=== PATIENT | male | born 1965 | race Caucasian/White ===

== ENCOUNTER 2017-01-17 09:13 | Inpatient (IN) | payer MEDICAID ==
[~2017-01-17] VITALS: Ht 175.3 cm; Wt 74.1 kg
[~2017-01-17 09:13] MED LIST: OMEP20CA10 PO; ORPH-43 PO; [UNRECOGNIZED DRUG - CODE] PO; [UNRECOGNIZED DRUG - REMARK]
[2017-01-17] MEDS ORDERED: MethylPREDNISolone SOD SUCC 125 MG/2 ML VIAL ONE (09:16)
[2017-01-17] MEDS ORDERED: 0.9% SODIUM CHLORIDE 5 ML NEB SOLUTION NEB ONE (09:23)
[2017-01-17] MEDS ORDERED: ALBUTEROL SULFATE 5 MG/ML 20 ML NEB SOLN [BULK] NEB ONE (09:30)
[2017-01-17] MEDS ORDERED: MethylPREDNISolone SOD SUCC 125 MG/2 ML VIAL IVP ONE (09:30)
[2017-01-17] MEDS ORDERED: IPRATROPIUM BROMIDE 0.5 MG/2.5 ML NEB SOLUTION NEB ONE (09:30)
[2017-01-17 09:39] LABS: BASOPHILS % (AUTO) 0.8 % (0.0-2.0); EOSINOPHILS % (AUTO) 5.1 % (1.0-6.0); HEMATOCRIT 34.1 % (41-53); HEMOGLOBIN 11.1 g/dL (13.5-17.5); LYMPHOCYTES # (AUTO) 1.1 K/uL (1.0-4.8); LYMPHOCYTES % (AUTO) 11.6 % (22.0-44.0); MEAN CORPUSCULAR HEMOGLOBIN 27.1 pg (26.0-34.0); MEAN CORPUSCULAR HGB CONC 32.4 G/dL (31.0-37.0); MEAN CORPUSCULAR VOLUME 84 fL (80-100); MONOCYTES # (AUTO) 0.9 K/uL (0.1-1.0); MONOCYTES % (AUTO) 9.4 % (2.0-9.0); NEUTROPHILS # (AUTO) 6.8 K/uL (1.8-7.7); NEUTROPHILS % (AUTO) 73.1 % (40.0-70.0); PLATELET COUNT (AUTO) 215 K/uL (150-450); RED BLOOD CELL COUNT(AUTO) 4.09 MIL/uL (4.50-5.90); RED CELL DISTRIBUTION WIDTH 17.3 % (11.5-14.5); WHITE BLOOD COUNT (AUTO) 9.3 K/uL (4.5-11.0)
[2017-01-17 09:45] LABS: ANION GAP 13 mmol/L (8-16); CALCIUM, TOTAL 8.8 mg/dL (8.8-10.5); CARBON DIOXIDE 25 mmol/L (22-29); CHLORIDE 102 mmol/L (98-107); CREATININE 0.82 mg/dL (0.60-1.30); GLOMERULAR FILTR. RATE CALC > 60 mL/min (>60); SODIUM SERUM 140 mmol/L (136-145); UREA NITROGEN, BLOOD 11 mg/dL (7-18)
[2017-01-17] MEDS ORDERED: ACETAMINOPHEN 500 MG TABLET PO ONE (10:00)
[2017-01-17 10:02] LABS: B-TYPE NATRIURETIC PEPTIDE 30 pg/mL (0-100)
[2017-01-17 10:10] LABS: ALANINE AMINOTRANSFERASE 31 U/L (12-78); ALBUMIN 3.6 g/dL (3.4-5.0); ASPARTATE AMINOTRANSFERASE 28 U/L (15-37); BILIRUBIN,TOTAL 0.4 mg/dL (0.1-1.0); CREATINE KINASE MB 0.8 ng/mL (0-5); CREATINE KINASE, TOTAL 115 U/L (39-308); TOTAL PROTEIN, SERUM 8.7 g/dL (6.4-8.2)
[2017-01-17 10:17] LABS: LACTIC ACID 1.3 mmol/L (0.4-2.0)
[2017-01-17 10:25] LABS: ABG OXYHEMOGLOBIN 97.7 % (94.0-100.0)
[2017-01-17 10:28] LABS: ABG A-A DIFF O2 375.9 mmHg (10-20.0); ABG BASE EXCESS -1.5 mmol/L (-2.0-3.0); ABG HCO3 23.6 mmol/L (22.0-26.0); ABG PCO2 38 mmHg (35-45); ABG PH 7.403 (7.35-7.450)
[2017-01-17 10:29] LABS: ALLEN TEST, BLOOD GAS Positive
[2017-01-17 10:29] LABS: APPEARANCE,URINE CLEAR (CLEAR); GLUCOSE, URINE (UA) NEGATIVE (NEGATIVE); KETONES,URINE 40 mg/dL (NEGATIVE); LEUKOCYTE ESTERASE ,URINE NEGATIVE (NEGATIVE); OCCULT BLOOD,URINE NEGATIVE (NEGATIVE); PH,URINE 5.5 (5.0-8.0); PROTEIN,URINE TRACE (NEGATIVE)
[2017-01-17 10:30] LABS: IPAP, BG 16 cm H2O
[2017-01-17 10:30] LABS: ADD UA MICROSCOPIC NO
[2017-01-17] MEDS ORDERED: SODIUM CHLORIDE 0.9% 500 ML IV ONE (10:30)
[2017-01-17] MEDS ORDERED: VANCOMYCIN HCL 1 GM/D5% WATER 200 ML IV ONE (10:30)
[2017-01-17] MEDS ORDERED: PIPERACILLIN/TAZO 3.375 GM/D5W 50 ML IV ONE (10:30)
[2017-01-17] MEDS ORDERED: KETOROLAC TROMETHAMINE 30 MG/ML VIAL IVP ONE (12:00)
[2017-01-17 13:31] LABS: INFLUENZA TYPE B NEGATIVE FOR TYPE B (NEGATIVE)
[2017-01-17] MEDS ORDERED: HYDROCODONE/ACETAMINOPHEN 5-325 MG TABLET PO PRN (13:45)
[2017-01-17] MEDS ORDERED: MAGNESIUM HYDROXIDE SUSPENSION 30 ML UDCUP PO PRN (13:45)
[2017-01-17] MEDS ORDERED: BISACODYL 10 MG RECTAL RECTAL SUPPOSITORY PR PRN (13:45)
[2017-01-17] MEDS ORDERED: IPRATROPIUM BROMIDE 0.5 MG/2.5 ML NEB SOLUTION NEB PRN (13:45)
[2017-01-17] MEDS ORDERED: ONDANSETRON HCL 4 MG/2 ML VIAL IVP PRN (13:45)
[2017-01-17] MEDS ORDERED: ACETAMINOPHEN 325 MG TABLET PO PRN (13:45)
[2017-01-17] MEDS ORDERED: ALBUTEROL SULFATE 2.5 MG/0.5 ML NEB SOLUTION NEB PRN (14:00)
[2017-01-17 14:08] VITALS: BP 109/69
[2017-01-17] MEDS: ALBUTEROL SULFATE 2.5 MG/0.5 ML NEB SOLUTION NEB SCH ×2 (14:47→20:04)
[2017-01-17] MEDS: IPRATROPIUM BROMIDE 0.5 MG/2.5 ML NEB SOLUTION NEB SCH ×2 (14:47→20:04)
[2017-01-17] MEDS ORDERED: SODIUM CHLORIDE 0.9% 250 ML IV ONE (14:51)
[2017-01-17] MEDS: CefTRIAXone 1 GM/DEXTROSE 50 ML IV SCH (14:55)
[2017-01-17 15:30] VITALS: BP 134/80
[2017-01-17] MEDS: IPRATROPIUM BROMIDE 0.5 MG/2.5 ML NEB SOLUTION NEB PRN (17:09)
[2017-01-17] MEDS: ALBUTEROL SULFATE 2.5 MG/0.5 ML NEB SOLUTION NEB PRN (17:09)
[2017-01-17] MEDS: AZITHROMYCIN 500 MG/NS 250 ML IV SCH (17:13)
[2017-01-17] MEDS: BENZONATATE 100 MG CAPSULE PO SCH ×2 (17:13→22:44)
[2017-01-17] MEDS: HEPARIN SODIUM,PORCINE 5,000 UNITS/ML VIAL SQ SCH (17:13)
[2017-01-17] MEDS ORDERED: *NON-FORMULARY MED [ENTER DRUG, DOSE, FREQ IN COMMENTS] CLINICAL ONE ×2 (18:30)
[2017-01-17 20:22] VITALS: BP 119/82
[2017-01-17] MEDS: MethylPREDNISolone SOD SUCC 125 MG/2 ML VIAL IVP SCH (20:44)
[2017-01-17] MEDS: PIRFENIDONE 267 MG PO SCH (20:44)
[2017-01-17] MEDS: DOCUSATE SODIUM 100 MG CAPSULE PO SCH (22:44)
[2017-01-17] MEDS: GuaiFENesin SR 600 MG ER TABLET PO SCH (22:44)
[2017-01-17 23:57] VITALS: BP 98/64
[2017-01-18] VITALS (7 sets, daily range): BP systolic 121–137; BP diastolic 72–92
[2017-01-18] MEDS: ALBUTEROL SULFATE 2.5 MG/0.5 ML NEB SOLUTION NEB SCH ×4 (01:53→20:09)
[2017-01-18] MEDS: IPRATROPIUM BROMIDE 0.5 MG/2.5 ML NEB SOLUTION NEB SCH ×4 (01:53→20:09)
[2017-01-18] MEDS: HEPARIN SODIUM,PORCINE 5,000 UNITS/ML VIAL SQ SCH ×4 (01:56→23:44)
[2017-01-18] MEDS: MethylPREDNISolone SOD SUCC 125 MG/2 ML VIAL IVP SCH ×5 (01:56→23:44)
[2017-01-18 06:39] LABS: EOSINOPHILS % (AUTO) 0 % (1.0-6.0); HEMATOCRIT 30.3 % (41-53); LYMPHOCYTES # (AUTO) 0.4 K/uL (1.0-4.8); LYMPHOCYTES % (AUTO) 3.5 % (22.0-44.0); MEAN CORPUSCULAR HEMOGLOBIN 27.8 pg (26.0-34.0); MEAN CORPUSCULAR HGB CONC 32.9 G/dL (31.0-37.0); MEAN CORPUSCULAR VOLUME 84 fL (80-100); MONOCYTES # (AUTO) 0.2 K/uL (0.1-1.0); MONOCYTES % (AUTO) 2.4 % (2.0-9.0); NEUTROPHILS # (AUTO) 9.7 K/uL (1.8-7.7); PLATELET COUNT (AUTO) 195 K/uL (150-450); RED BLOOD CELL COUNT(AUTO) 3.58 MIL/uL (4.50-5.90); RED CELL DISTRIBUTION WIDTH 16.8 % (11.5-14.5); WHITE BLOOD COUNT (AUTO) 10.3 K/uL (4.5-11.0)
[2017-01-18 07:06] LABS: ANION GAP 10 mmol/L (8-16); CALCIUM, TOTAL 9.1 mg/dL (8.8-10.5); CARBON DIOXIDE 26 mmol/L (22-29); CHLORIDE 101 mmol/L (98-107); CREATININE 0.75 mg/dL (0.60-1.30); GLOMERULAR FILTR. RATE CALC > 60 mL/min (>60); POTASSIUM 4.2 mmol/L (3.5-5.1); SODIUM SERUM 137 mmol/L (136-145); UREA NITROGEN, BLOOD 22 mg/dL (7-18)
[2017-01-18 07:10] LABS: NEUTROPHILS % (AUTO) 94.1 % (40.0-70.0)
[2017-01-18] MEDS: PIRFENIDONE 267 MG PO SCH ×3 (08:12→19:11)
[2017-01-18] MEDS: DOCUSATE SODIUM 100 MG CAPSULE PO SCH ×2 (08:15→19:57)
[2017-01-18] MEDS: PANTOPRAZOLE SODIUM 40 MG DR TABLET PO SCH (08:15)
[2017-01-18] MEDS: GuaiFENesin SR 600 MG ER TABLET PO SCH ×2 (08:15→19:57)
[2017-01-18] MEDS: BENZONATATE 100 MG CAPSULE PO SCH ×3 (08:15→19:58)
[2017-01-18] MEDS: CefTRIAXone 1 GM/DEXTROSE 50 ML IV SCH (15:14)
[2017-01-18] MEDS: AZITHROMYCIN 500 MG/NS 250 ML IV SCH (16:55)
[2017-01-18] MEDS: ZOLPIDEM TARTRATE 5 MG TABLET PO PRN (19:58)
[2017-01-18] MEDS: MORPHINE SULFATE 2 MG/ML SYRINGE IVP PRN (22:20)
[2017-01-19] MEDS: IPRATROPIUM BROMIDE 0.5 MG/2.5 ML NEB SOLUTION NEB SCH ×4 (01:37→20:06)
[2017-01-19] MEDS: ALBUTEROL SULFATE 2.5 MG/0.5 ML NEB SOLUTION NEB SCH ×4 (01:37→20:06)
[2017-01-19 05:12] VITALS: BP 109/74
[2017-01-19] MEDS: MethylPREDNISolone SOD SUCC 125 MG/2 ML VIAL IVP SCH ×3 (05:21→17:55)
[2017-01-19 06:50] LABS: EOSINOPHILS % (AUTO) 0 % (1.0-6.0); HEMATOCRIT 32.5 % (41-53); HEMOGLOBIN 10.5 g/dL (13.5-17.5); LYMPHOCYTES # (AUTO) 0.8 K/uL (1.0-4.8); LYMPHOCYTES % (AUTO) 4.9 % (22.0-44.0); MEAN CORPUSCULAR HEMOGLOBIN 27.8 pg (26.0-34.0); MEAN CORPUSCULAR HGB CONC 32.5 G/dL (31.0-37.0); MEAN CORPUSCULAR VOLUME 86 fL (80-100); MONOCYTES # (AUTO) 0.9 K/uL (0.1-1.0); MONOCYTES % (AUTO) 5.2 % (2.0-9.0); NEUTROPHILS # (AUTO) 14.8 K/uL (1.8-7.7); PLATELET COUNT (AUTO) 238 K/uL (150-450); RED BLOOD CELL COUNT(AUTO) 3.79 MIL/uL (4.50-5.90); RED CELL DISTRIBUTION WIDTH 17.2 % (11.5-14.5); WHITE BLOOD COUNT (AUTO) 16.5 K/uL (4.5-11.0)
[2017-01-19 06:55] LABS: NEUTROPHILS % (AUTO) 89.9 % (40.0-70.0)
[2017-01-19] MEDS: PIRFENIDONE 267 MG PO SCH ×3 (06:58→17:55)
[2017-01-19 07:11] LABS: ANION GAP 7 mmol/L (8-16); CALCIUM, TOTAL 8.5 mg/dL (8.8-10.5); CARBON DIOXIDE 28 mmol/L (22-29); CHLORIDE 101 mmol/L (98-107); CREATININE 0.86 mg/dL (0.60-1.30); GLOMERULAR FILTR. RATE CALC > 60 mL/min (>60); POTASSIUM 4.3 mmol/L (3.5-5.1); SODIUM SERUM 136 mmol/L (136-145); UREA NITROGEN, BLOOD 20 mg/dL (7-18)
[2017-01-19 07:24] VITALS: BP 128/96
[2017-01-19 07:39] LABS: RBC MORPHOLOGY COMMENT ABNORMAL RBC MORPH
[2017-01-19] MEDS: BENZONATATE 100 MG CAPSULE PO SCH ×3 (09:00→20:05)
[2017-01-19] MEDS: HEPARIN SODIUM,PORCINE 5,000 UNITS/ML VIAL SQ SCH ×2 (09:00→17:07)
[2017-01-19] MEDS: PANTOPRAZOLE SODIUM 40 MG DR TABLET PO SCH (09:00)
[2017-01-19] MEDS: GuaiFENesin SR 600 MG ER TABLET PO SCH ×2 (09:00→20:05)
[2017-01-19] MEDS: DOCUSATE SODIUM 100 MG CAPSULE PO SCH ×2 (09:01→20:05)
[2017-01-19] MEDS: IPRATROPIUM BROMIDE 0.5 MG/2.5 ML NEB SOLUTION NEB PRN (09:49)
[2017-01-19] MEDS: ALBUTEROL SULFATE 2.5 MG/0.5 ML NEB SOLUTION NEB PRN (09:49)
[2017-01-19 11:16] VITALS: BP 137/64
[2017-01-19] MEDS ORDERED: HALOPERIDOL 5 MG TABLET PO PRN (15:00)
[2017-01-19 15:21] VITALS: BP 128/76
[2017-01-19] MEDS: CefTRIAXone 1 GM/DEXTROSE 50 ML IV SCH (17:07)
[2017-01-19] MEDS: AZITHROMYCIN 500 MG/NS 250 ML IV SCH (17:55)
[2017-01-19 19:50] VITALS: BP 125/81
[2017-01-19] MEDS: HALOPERIDOL LACTATE 5 MG/ML VIAL IVP PRN (22:26)
[2017-01-19] MEDS: ZOLPIDEM TARTRATE 5 MG TABLET PO PRN (22:26)
[2017-01-19 23:38] VITALS: BP 140/68
[2017-01-20] VITALS (7 sets, daily range): BP systolic 106–149; BP diastolic 68–93
[2017-01-20] MEDS: MethylPREDNISolone SOD SUCC 125 MG/2 ML VIAL IVP SCH ×5 (00:13→23:43)
[2017-01-20] MEDS: HEPARIN SODIUM,PORCINE 5,000 UNITS/ML VIAL SQ SCH ×4 (00:13→23:43)
[2017-01-20] MEDS: IPRATROPIUM BROMIDE 0.5 MG/2.5 ML NEB SOLUTION NEB SCH ×4 (02:23→19:43)
[2017-01-20] MEDS: ALBUTEROL SULFATE 2.5 MG/0.5 ML NEB SOLUTION NEB SCH ×4 (02:23→19:42)
[2017-01-20 06:38] LABS: BASOPHILS # (AUTO) 0.02 K/uL (0.00-0.20); BASOPHILS % (AUTO) 0.1 % (0.0-2.0); EOSINOPHILS % (AUTO) 0.03 % (1.0-6.0); HEMATOCRIT 31.8 % (41-53); HEMOGLOBIN 10.2 g/dL (13.5-17.5); LYMPHOCYTES # (AUTO) 0.3 K/uL (1.0-4.8); LYMPHOCYTES % (AUTO) 2.9 % (22.0-44.0); MEAN CORPUSCULAR HEMOGLOBIN 27.3 pg (26.0-34.0); MEAN CORPUSCULAR HGB CONC 32.2 G/dL (31.0-37.0); MEAN CORPUSCULAR VOLUME 85 fL (80-100); MONOCYTES # (AUTO) 0.7 K/uL (0.1-1.0); MONOCYTES % (AUTO) 6.1 % (2.0-9.0); NEUTROPHILS # (AUTO) 10.7 K/uL (1.8-7.7); PLATELET COUNT (AUTO) 182 K/uL (150-450); RED BLOOD CELL COUNT(AUTO) 3.75 MIL/uL (4.50-5.90); RED CELL DISTRIBUTION WIDTH 17.6 % (11.5-14.5); WHITE BLOOD COUNT (AUTO) 11.8 K/uL (4.5-11.0)
[2017-01-20 06:52] LABS: ANION GAP 7 mmol/L (8-16); CALCIUM, TOTAL 8.7 mg/dL (8.8-10.5); CARBON DIOXIDE 30 mmol/L (22-29); CHLORIDE 102 mmol/L (98-107); CREATININE 0.76 mg/dL (0.60-1.30); GLOMERULAR FILTR. RATE CALC > 60 mL/min (>60); POTASSIUM 4.2 mmol/L (3.5-5.1); SODIUM SERUM 139 mmol/L (136-145); UREA NITROGEN, BLOOD 20 mg/dL (7-18)
[2017-01-20 07:29] LABS: NEUTROPHILS % (AUTO) 90.8 % (40.0-70.0)
[2017-01-20] MEDS: BENZONATATE 100 MG CAPSULE PO SCH ×3 (08:13→20:09)
[2017-01-20] MEDS: DOCUSATE SODIUM 100 MG CAPSULE PO SCH ×2 (08:13→20:08)
[2017-01-20] MEDS: PANTOPRAZOLE SODIUM 40 MG DR TABLET PO SCH (08:13)
[2017-01-20] MEDS: GuaiFENesin SR 600 MG ER TABLET PO SCH ×2 (08:13→20:08)
[2017-01-20] MEDS: PIRFENIDONE 267 MG PO SCH ×4 (08:14→18:00)
[2017-01-20] MEDS: HALOPERIDOL LACTATE 5 MG/ML VIAL IVP PRN ×3 (08:30→19:38)
[2017-01-20 09:04] LABS: RBC MORPHOLOGY COMMENT ABNORMAL RBC MORPH
[2017-01-20] MEDS: IPRATROPIUM BROMIDE 0.5 MG/2.5 ML NEB SOLUTION NEB PRN (11:46)
[2017-01-20] MEDS: ALBUTEROL SULFATE 2.5 MG/0.5 ML NEB SOLUTION NEB PRN (11:46)
[2017-01-20] MEDS: LORazepam 2 MG/ML VIAL IVP PRN ×3 (11:57→21:24)
[2017-01-20 12:05] LABS: ABG BASE EXCESS 0.2 mmol/L (-2.0-3.0); ABG HCO3 24.6 mmol/L (22.0-26.0); ABG OXYHEMOGLOBIN 98.3 % (94.0-100.0); ABG PCO2 43 mmHg (35-45); ABG PH 7.384 (7.35-7.450); TEMPERATURE, FAHRENHEIT, BG 98.3 FAHREN (96.0-98.6)
[2017-01-20 12:06] LABS: ALLEN TEST, BLOOD GAS Positive; IPAP, BG 12 cm H2O
[2017-01-20] MEDS: MORPHINE SULFATE 2 MG/ML SYRINGE IVP PRN ×2 (13:31→19:38)
[2017-01-20] MEDS: CefTRIAXone 1 GM/DEXTROSE 50 ML IV SCH (14:32)
[2017-01-20] MEDS ORDERED: SODIUM CHLORIDE 0.9% 250 ML IV ONE (14:36)
[2017-01-20] MEDS: AZITHROMYCIN 500 MG/NS 250 ML IV SCH (16:01)
[2017-01-20] MEDS: ZOLPIDEM TARTRATE 5 MG TABLET PO PRN (19:38)
[2017-01-21] VITALS (10 sets, daily range): BP systolic 96–149; BP diastolic 65–87
[2017-01-21] MEDS: ALBUTEROL SULFATE 2.5 MG/0.5 ML NEB SOLUTION NEB SCH ×4 (01:29→19:25)
[2017-01-21] MEDS: IPRATROPIUM BROMIDE 0.5 MG/2.5 ML NEB SOLUTION NEB SCH ×4 (01:29→19:25)
[2017-01-21] MEDS: HALOPERIDOL LACTATE 5 MG/ML VIAL IVP PRN ×3 (01:53→19:43)
[2017-01-21] MEDS: MORPHINE SULFATE 2 MG/ML SYRINGE IVP PRN ×4 (01:53→21:04)
[2017-01-21] MEDS: LORazepam 2 MG/ML VIAL IVP PRN ×4 (01:53→21:04)
[2017-01-21 05:10] LABS: ANION GAP 4 mmol/L (8-16); CALCIUM, TOTAL 8.5 mg/dL (8.8-10.5); CARBON DIOXIDE 32 mmol/L (22-29); CHLORIDE 102 mmol/L (98-107); CREATININE 0.72 mg/dL (0.60-1.30); GLOMERULAR FILTR. RATE CALC > 60 mL/min (>60); POTASSIUM 4.5 mmol/L (3.5-5.1); SODIUM SERUM 138 mmol/L (136-145); UREA NITROGEN, BLOOD 23 mg/dL (7-18)
[2017-01-21 06:08] LABS: EOSINOPHILS % (AUTO) 0 % (1.0-6.0); HEMOGLOBIN 9.5 g/dL (13.5-17.5); LYMPHOCYTES # (AUTO) 0.2 K/uL (1.0-4.8); MEAN CORPUSCULAR HEMOGLOBIN 28.3 pg (26.0-34.0); MEAN CORPUSCULAR HGB CONC 32.7 G/dL (31.0-37.0); MEAN CORPUSCULAR VOLUME 86 fL (80-100); MONOCYTES # (AUTO) 0.4 K/uL (0.1-1.0); MONOCYTES % (AUTO) 4.7 % (2.0-9.0); NEUTROPHILS # (AUTO) 7.2 K/uL (1.8-7.7); PLATELET COUNT (AUTO) 185 K/uL (150-450); RED BLOOD CELL COUNT(AUTO) 3.35 MIL/uL (4.50-5.90); RED CELL DISTRIBUTION WIDTH 17.3 % (11.5-14.5); WHITE BLOOD COUNT (AUTO) 7.8 K/uL (4.5-11.0)
[2017-01-21 06:16] LABS: NEUTROPHILS % (AUTO) 92.3 % (40.0-70.0)
[2017-01-21] MEDS: MethylPREDNISolone SOD SUCC 125 MG/2 ML VIAL IVP SCH ×4 (06:22→23:21)
[2017-01-21] MEDS: PIRFENIDONE 267 MG PO SCH ×4 (07:00→15:45)
[2017-01-21 07:24] LABS: RBC MORPHOLOGY COMMENT ABNORMAL RBC MORPH
[2017-01-21] MEDS: BENZONATATE 100 MG CAPSULE PO SCH ×4 (09:00→21:00)
[2017-01-21] MEDS: GuaiFENesin SR 600 MG ER TABLET PO SCH ×3 (09:00→21:00)
[2017-01-21] MEDS: DOCUSATE SODIUM 100 MG CAPSULE PO SCH ×3 (09:00→21:00)
[2017-01-21] MEDS: HEPARIN SODIUM,PORCINE 5,000 UNITS/ML VIAL SQ SCH ×3 (09:46→23:21)
[2017-01-21] MEDS: PANTOPRAZOLE SODIUM 40 MG DR TABLET PO SCH ×2 (09:48→10:27)
[2017-01-21] MEDS ORDERED: DEXTROSE 5%-0.45% SODIUM CHL 1,000 ML IV SCH (13:45)
[2017-01-21] MEDS: CefTRIAXone 1 GM/DEXTROSE 50 ML IV SCH (14:37)
[2017-01-21] MEDS: AZITHROMYCIN 500 MG/NS 250 ML IV SCH (16:29)
[2017-01-22] VITALS (14 sets, daily range): BP systolic 106–143; BP diastolic 67–90
[2017-01-22] MEDS: MORPHINE SULFATE 2 MG/ML SYRINGE IVP PRN ×4 (01:16→17:00)
[2017-01-22] MEDS: LORazepam 2 MG/ML VIAL IVP PRN ×5 (01:17→20:46)
[2017-01-22] MEDS: IPRATROPIUM BROMIDE 0.5 MG/2.5 ML NEB SOLUTION NEB SCH ×4 (02:48→21:46)
[2017-01-22] MEDS: ALBUTEROL SULFATE 2.5 MG/0.5 ML NEB SOLUTION NEB SCH ×4 (02:48→21:46)
[2017-01-22] MEDS: HALOPERIDOL LACTATE 5 MG/ML VIAL IVP PRN ×4 (04:27→23:46)
[2017-01-22] MEDS: PIRFENIDONE 267 MG PO SCH ×3 (06:10→17:46)
[2017-01-22] MEDS: MethylPREDNISolone SOD SUCC 125 MG/2 ML VIAL IVP SCH ×4 (06:11→23:46)
[2017-01-22] MEDS: HEPARIN SODIUM,PORCINE 5,000 UNITS/ML VIAL SQ SCH ×3 (08:19→23:46)
[2017-01-22] MEDS: DOCUSATE SODIUM 100 MG CAPSULE PO SCH ×2 (08:19→20:46)
[2017-01-22] MEDS: BENZONATATE 100 MG CAPSULE PO SCH ×3 (08:20→20:46)
[2017-01-22] MEDS: GuaiFENesin SR 600 MG ER TABLET PO SCH ×2 (08:20→20:46)
[2017-01-22] MEDS ORDERED: *CLINICAL-PERIPHERAL PARENTERAL NUTRITION DOSING CLINICAL ONE (11:45)
[2017-01-22] MEDS ORDERED: SODIUM CHLORIDE 0.9% 250 ML IV ONE (13:04)
[2017-01-22] MEDS: PPN SOLUTION 1 EA, MVI, ADULT NO.1 WITH VIT K 10 ML, FOLIC ACID 2 MG in AA 4.25%/CALCIU... IV SCH ×3 (13:09)
[2017-01-22 15:09] LABS: ABG A-A DIFF O2 560.2 mmHg (10-20.0); ABG OXYHEMOGLOBIN 96.4 % (94.0-100.0); ABG PCO2 54 mmHg (35-45); ABG PH 7.368 (7.35-7.450); ALLEN TEST, BLOOD GAS Positive; TEMPERATURE, FAHRENHEIT, BG 98.2 FAHREN (96.0-98.6)
[2017-01-22] MEDS: CefTRIAXone 1 GM/DEXTROSE 50 ML IV SCH (15:09)
[2017-01-22 15:10] LABS: IPAP, BG 16 cm H2O
[2017-01-22] MEDS: AZITHROMYCIN 500 MG/NS 250 ML IV SCH (16:15)
[2017-01-23] VITALS (11 sets, daily range): BP systolic 104–159; BP diastolic 71–98
[2017-01-23] MEDS: IPRATROPIUM BROMIDE 0.5 MG/2.5 ML NEB SOLUTION NEB SCH ×4 (02:28→19:08)
[2017-01-23] MEDS: ALBUTEROL SULFATE 2.5 MG/0.5 ML NEB SOLUTION NEB SCH ×4 (02:28→19:09)
[2017-01-23] MEDS: LORazepam 2 MG/ML VIAL IVP PRN ×4 (02:33→19:19)
[2017-01-23 05:11] LABS: ANION GAP 3 mmol/L (8-16); CALCIUM, TOTAL 8.5 mg/dL (8.8-10.5); CARBON DIOXIDE 33 mmol/L (22-29); CHLORIDE 102 mmol/L (98-107); CREATININE 0.69 mg/dL (0.60-1.30); GLOMERULAR FILTR. RATE CALC > 60 mL/min (>60); PHOSPHORUS 3.4 mg/dL (2.5-4.9); POTASSIUM 4.4 mmol/L (3.5-5.1); SODIUM SERUM 138 mmol/L (136-145); UREA NITROGEN, BLOOD 30 mg/dL (7-18)
[2017-01-23] MEDS: MethylPREDNISolone SOD SUCC 125 MG/2 ML VIAL IVP SCH ×3 (06:42→17:22)
[2017-01-23] MEDS: PIRFENIDONE 267 MG PO SCH ×3 (06:42→17:21)
[2017-01-23] MEDS: HALOPERIDOL LACTATE 5 MG/ML VIAL IVP PRN ×3 (06:52→20:21)
[2017-01-23 07:41] LABS: EOSINOPHILS % (AUTO) 0 % (1.0-6.0); HEMATOCRIT 30.8 % (41-53); HEMOGLOBIN 9.9 g/dL (13.5-17.5); LYMPHOCYTES # (AUTO) 0.1 K/uL (1.0-4.8); LYMPHOCYTES % (AUTO) 1.5 % (22.0-44.0); MEAN CORPUSCULAR HGB CONC 32.2 G/dL (31.0-37.0); MEAN CORPUSCULAR VOLUME 84 fL (80-100); MONOCYTES # (AUTO) 0.3 K/uL (0.1-1.0); MONOCYTES % (AUTO) 3.5 % (2.0-9.0); NEUTROPHILS # (AUTO) 7.5 K/uL (1.8-7.7); PLATELET COUNT (AUTO) 172 K/uL (150-450); RED BLOOD CELL COUNT(AUTO) 3.68 MIL/uL (4.50-5.90); RED CELL DISTRIBUTION WIDTH 16.7 % (11.5-14.5); WHITE BLOOD COUNT (AUTO) 7.9 K/uL (4.5-11.0)
[2017-01-23] MEDS: HEPARIN SODIUM,PORCINE 5,000 UNITS/ML VIAL SQ SCH ×2 (08:07→16:02)
[2017-01-23] MEDS: DOCUSATE SODIUM 100 MG CAPSULE PO SCH ×2 (09:00→20:21)
[2017-01-23] MEDS: PANTOPRAZOLE SODIUM 40 MG/VIAL IVP SCH (09:21)
[2017-01-23] MEDS: BENZONATATE 100 MG CAPSULE PO SCH ×4 (09:21→20:21)
[2017-01-23] MEDS: GuaiFENesin SR 600 MG ER TABLET PO SCH ×2 (09:21→20:21)
[2017-01-23] MEDS: MORPHINE SULFATE 2 MG/ML SYRINGE IVP PRN ×3 (10:51→21:53)
[2017-01-23] MEDS: ALBUTEROL SULFATE 2.5 MG/0.5 ML NEB SOLUTION NEB PRN (11:11)
[2017-01-23] MEDS: IPRATROPIUM BROMIDE 0.5 MG/2.5 ML NEB SOLUTION NEB PRN (11:13)
[2017-01-23] MEDS: PPN SOLUTION 1 EA, MVI, ADULT NO.1 WITH VIT K 10 ML, FOLIC ACID 2 MG in AA 4.25%/CALCIU... IV SCH ×3 (13:43)
[2017-01-23] MEDS ORDERED: SODIUM CHLORIDE 0.9% 250 ML IV ONE (15:02)
[2017-01-23] MEDS: CefTRIAXone 1 GM/DEXTROSE 50 ML IV SCH (15:07)
[2017-01-23] MEDS: AZITHROMYCIN 500 MG/NS 250 ML IV SCH (16:01)
[2017-01-23] MEDS: ZOLPIDEM TARTRATE 5 MG TABLET PO PRN (20:21)
[2017-01-24] VITALS (13 sets, daily range): BP systolic 122–166; BP diastolic 73–108
[2017-01-24] MEDS: HEPARIN SODIUM,PORCINE 5,000 UNITS/ML VIAL SQ SCH ×3 (00:03→15:23)
[2017-01-24] MEDS: LORazepam 2 MG/ML VIAL IVP PRN ×6 (00:03→22:41)
[2017-01-24] MEDS: MethylPREDNISolone SOD SUCC 125 MG/2 ML VIAL IVP SCH ×4 (00:03→17:55)
[2017-01-24] MEDS: ALBUTEROL SULFATE 2.5 MG/0.5 ML NEB SOLUTION NEB SCH ×4 (02:33→19:32)
[2017-01-24] MEDS: IPRATROPIUM BROMIDE 0.5 MG/2.5 ML NEB SOLUTION NEB SCH ×4 (02:33→19:31)
[2017-01-24 05:18] LABS: EOSINOPHILS % (AUTO) 0.02 % (1.0-6.0); HEMATOCRIT 31.3 % (41-53); HEMOGLOBIN 9.8 g/dL (13.5-17.5); LYMPHOCYTES # (AUTO) 0.1 K/uL (1.0-4.8); LYMPHOCYTES % (AUTO) 1.5 % (22.0-44.0); MEAN CORPUSCULAR HEMOGLOBIN 26.6 pg (26.0-34.0); MEAN CORPUSCULAR HGB CONC 31.4 G/dL (31.0-37.0); MEAN CORPUSCULAR VOLUME 85 fL (80-100); MONOCYTES # (AUTO) 0.3 K/uL (0.1-1.0); MONOCYTES % (AUTO) 3.7 % (2.0-9.0); NEUTROPHILS # (AUTO) 7.3 K/uL (1.8-7.7); PLATELET COUNT (AUTO) 161 K/uL (150-450); RED CELL DISTRIBUTION WIDTH 17.5 % (11.5-14.5); WHITE BLOOD COUNT (AUTO) 7.7 K/uL (4.5-11.0)
[2017-01-24 05:24] LABS: ANION GAP 5 mmol/L (8-16); CALCIUM, TOTAL 8.4 mg/dL (8.8-10.5); CARBON DIOXIDE 32 mmol/L (22-29); CHLORIDE 101 mmol/L (98-107); CREATININE 0.68 mg/dL (0.60-1.30); GLOMERULAR FILTR. RATE CALC > 60 mL/min (>60); PHOSPHORUS 3.1 mg/dL (2.5-4.9); POTASSIUM 4.4 mmol/L (3.5-5.1); SODIUM SERUM 138 mmol/L (136-145); UREA NITROGEN, BLOOD 28 mg/dL (7-18)
[2017-01-24 05:28] LABS: NEUTROPHILS % (AUTO) 94.8 % (40.0-70.0)
[2017-01-24] MEDS: MORPHINE SULFATE 2 MG/ML SYRINGE IVP PRN ×2 (05:41→16:33)
[2017-01-24] MEDS: PIRFENIDONE 267 MG PO SCH ×3 (05:47→17:54)
[2017-01-24] MEDS: DOCUSATE SODIUM 100 MG CAPSULE PO SCH ×3 (08:00→21:00)
[2017-01-24] MEDS: BENZONATATE 100 MG CAPSULE PO SCH ×4 (08:00→21:00)
[2017-01-24] MEDS: GuaiFENesin SR 600 MG ER TABLET PO SCH ×3 (08:00→21:00)
[2017-01-24] MEDS: PANTOPRAZOLE SODIUM 40 MG/VIAL IVP SCH (08:00)
[2017-01-24] MEDS ORDERED: MORPHINE SULFATE 2 MG/ML SYRINGE IVP PRN ×3 (09:00→12:00)
[2017-01-24] MEDS ORDERED: LORazepam 2 MG/ML VIAL IVP PRN (09:45)
[2017-01-24] MEDS: HALOPERIDOL LACTATE 5 MG/ML VIAL IVP PRN ×2 (13:04→21:56)
[2017-01-24] MEDS: PPN SOLUTION 1 EA, MVI, ADULT NO.1 WITH VIT K 10 ML, FOLIC ACID 2 MG in AA 4.25%/CALCIU... IV SCH ×3 (13:04)
[2017-01-25] VITALS (10 sets, daily range): BP systolic 121–162; BP diastolic 75–102
[2017-01-25] MEDS: HEPARIN SODIUM,PORCINE 5,000 UNITS/ML VIAL SQ SCH ×3 (00:10→16:31)
[2017-01-25] MEDS: MethylPREDNISolone SOD SUCC 125 MG/2 ML VIAL IVP SCH ×3 (00:10→21:10)
[2017-01-25] MEDS: LORazepam 2 MG/ML VIAL IVP PRN ×10 (00:32→22:17)
[2017-01-25] MEDS: MORPHINE SULFATE 2 MG/ML SYRINGE IVP PRN ×6 (01:33→16:14)
[2017-01-25] MEDS: ALBUTEROL SULFATE 2.5 MG/0.5 ML NEB SOLUTION NEB SCH ×4 (02:48→19:39)
[2017-01-25] MEDS: IPRATROPIUM BROMIDE 0.5 MG/2.5 ML NEB SOLUTION NEB SCH ×4 (02:48→19:39)
[2017-01-25 06:08] LABS: ANION GAP 6 mmol/L (8-16); CALCIUM, TOTAL 8.7 mg/dL (8.8-10.5); CARBON DIOXIDE 32 mmol/L (22-29); CHLORIDE 103 mmol/L (98-107); CREATININE 0.76 mg/dL (0.60-1.30); GLOMERULAR FILTR. RATE CALC > 60 mL/min (>60); PHOSPHORUS 3.9 mg/dL (2.5-4.9); POTASSIUM 4.9 mmol/L (3.5-5.1); SODIUM SERUM 141 mmol/L (136-145); UREA NITROGEN, BLOOD 31 mg/dL (7-18)
[2017-01-25] MEDS: GuaiFENesin SR 600 MG ER TABLET PO SCH ×2 (09:00→19:49)
[2017-01-25] MEDS: DOCUSATE SODIUM 100 MG CAPSULE PO SCH ×2 (09:00→19:49)
[2017-01-25] MEDS: BENZONATATE 100 MG CAPSULE PO SCH ×3 (09:00→19:49)
[2017-01-25] MEDS: PIRFENIDONE 267 MG PO SCH ×3 (09:19→18:00)
[2017-01-25] MEDS: PANTOPRAZOLE SODIUM 40 MG/VIAL IVP SCH (09:22)
[2017-01-25] MEDS: HALOPERIDOL LACTATE 5 MG/ML VIAL IVP PRN ×2 (10:15→17:18)
[2017-01-25] MEDS ORDERED: [UNRECOGNIZED DRUG - OTHER] IV SCH ×7 (13:00)
[2017-01-25] MEDS ORDERED: SODIUM CHLORIDE IV SCH ×7 (13:00)
[2017-01-25] MEDS ORDERED: POTASSIUM PHOS M BASIC D BASIC IV SCH ×7 (13:00)
[2017-01-25] MEDS ORDERED: PPN IV SCH ×7 (13:00)
[2017-01-25] MEDS: MORPHINE SULFATE 100 MG/NS/PF 100 ML IV PRN (17:26)
[2017-01-25] MEDS: IPRATROPIUM BROMIDE 0.5 MG/2.5 ML NEB SOLUTION NEB PRN (18:02)
[2017-01-25] MEDS: ALBUTEROL SULFATE 2.5 MG/0.5 ML NEB SOLUTION NEB PRN (18:03)
[2017-01-25] MEDS ORDERED: ACETAMINOPHEN 650 MG/ISO-OSM 65 ML IV ONE (22:00)
[2017-01-26] MEDS: HEPARIN SODIUM,PORCINE 5,000 UNITS/ML VIAL SQ SCH ×4 (01:58→23:40)
[2017-01-26] MEDS: ALBUTEROL SULFATE 2.5 MG/0.5 ML NEB SOLUTION NEB SCH ×4 (02:08→20:09)
[2017-01-26] MEDS: IPRATROPIUM BROMIDE 0.5 MG/2.5 ML NEB SOLUTION NEB SCH ×4 (02:08→20:09)
[2017-01-26] MEDS: LORazepam 2 MG/ML VIAL IVP PRN ×8 (05:38→21:14)
[2017-01-26 05:50] VITALS: BP 130/74
[2017-01-26 06:57] LABS: ANION GAP 4 mmol/L (8-16); CALCIUM, TOTAL 8.3 mg/dL (8.8-10.5); CARBON DIOXIDE 33 mmol/L (22-29); CHLORIDE 103 mmol/L (98-107); CREATININE 0.82 mg/dL (0.60-1.30); GLOMERULAR FILTR. RATE CALC > 60 mL/min (>60); PHOSPHORUS 4.2 mg/dL (2.5-4.9); POTASSIUM 5.1 mmol/L (3.5-5.1); SODIUM SERUM 140 mmol/L (136-145); UREA NITROGEN, BLOOD 36 mg/dL (7-18)
[2017-01-26] MEDS: PIRFENIDONE 267 MG PO SCH ×3 (07:00→18:00)
[2017-01-26 07:44] VITALS: BP 115/70
[2017-01-26] MEDS: PANTOPRAZOLE SODIUM 40 MG/VIAL IVP SCH (08:43)
[2017-01-26] MEDS: MethylPREDNISolone SOD SUCC 125 MG/2 ML VIAL IVP SCH ×2 (08:43→21:13)
[2017-01-26] MEDS: DOCUSATE SODIUM 100 MG CAPSULE PO SCH ×2 (08:44→21:00)
[2017-01-26] MEDS: BENZONATATE 100 MG CAPSULE PO SCH ×3 (08:44→21:00)
[2017-01-26] MEDS: GuaiFENesin SR 600 MG ER TABLET PO SCH ×2 (08:44→21:00)
[2017-01-26 11:23] VITALS: BP 127/72
[2017-01-26] MEDS: MORPHINE SULFATE 100 MG/NS/PF 100 ML IV PRN ×2 (12:57→16:23)
[2017-01-26] MEDS: [UNRECOGNIZED DRUG - REMARK] IV SCH ×5 (13:15)
[2017-01-26 15:41] VITALS: BP 146/75
[2017-01-26 20:34] VITALS: BP 130/91
[2017-01-27 00:40] VITALS: BP 126/92
[2017-01-27] MEDS: LORazepam 2 MG/ML VIAL IVP PRN ×2 (01:32→21:25)
[2017-01-27] MEDS: ALBUTEROL SULFATE 2.5 MG/0.5 ML NEB SOLUTION NEB SCH ×4 (02:56→19:38)
[2017-01-27] MEDS: IPRATROPIUM BROMIDE 0.5 MG/2.5 ML NEB SOLUTION NEB SCH ×4 (02:56→19:38)
[2017-01-27 04:46] VITALS: BP 155/88
[2017-01-27 06:47] LABS: ANION GAP 3 mmol/L (8-16); CALCIUM, TOTAL 8.6 mg/dL (8.8-10.5); CARBON DIOXIDE 36 mmol/L (22-29); CHLORIDE 102 mmol/L (98-107); CREATININE 0.66 mg/dL (0.60-1.30); GLOMERULAR FILTR. RATE CALC > 60 mL/min (>60); PHOSPHORUS 5.4 mg/dL (2.5-4.9); SODIUM SERUM 141 mmol/L (136-145); UREA NITROGEN, BLOOD 33 mg/dL (7-18)
[2017-01-27] MEDS: PIRFENIDONE 267 MG PO SCH ×3 (07:00→18:00)
[2017-01-27 07:31] LABS: POTASSIUM 6.3 mmol/L (3.5-5.1)
[2017-01-27 08:02] VITALS: BP 145/86
[2017-01-27] MEDS ORDERED: SODIUM POLYSTYRENE SULFONATE 15 GM/60 ML SUSPENSION BOTTLE PR ONE (08:15)
[2017-01-27] MEDS: MethylPREDNISolone SOD SUCC 125 MG/2 ML VIAL IVP SCH ×2 (08:38→21:25)
[2017-01-27] MEDS: HEPARIN SODIUM,PORCINE 5,000 UNITS/ML VIAL SQ SCH ×3 (08:38→23:36)
[2017-01-27] MEDS: PANTOPRAZOLE SODIUM 40 MG/VIAL IVP SCH (08:39)
[2017-01-27] MEDS: BENZONATATE 100 MG CAPSULE PO SCH ×3 (09:00→21:00)
[2017-01-27] MEDS: DOCUSATE SODIUM 100 MG CAPSULE PO SCH ×2 (09:00→21:00)
[2017-01-27] MEDS: GuaiFENesin SR 600 MG ER TABLET PO SCH ×2 (09:00→21:00)
[2017-01-27] MEDS: MORPHINE SULFATE 100 MG/NS/PF 100 ML IV PRN (10:31)
[2017-01-27 11:21] VITALS: BP 161/93
[2017-01-27] MEDS ORDERED: DEXTROSE 50%-WATER 25 GM/50 ML SYRINGE IVP PRN (11:45)
[2017-01-27] MEDS ORDERED: INSULIN REGULAR, HUMAN 100 UNITS/ML SQ PRN (11:45)
[2017-01-27] MEDS: [UNRECOGNIZED DRUG - REMARK] IV SCH ×5 (13:48)
[2017-01-27 15:32] VITALS: BP 137/93
[2017-01-27 19:51] VITALS: BP 146/86
[2017-01-28] VITALS (7 sets, daily range): BP systolic 63–134; BP diastolic 34–80
[2017-01-28] MEDS: ALBUTEROL SULFATE 2.5 MG/0.5 ML NEB SOLUTION NEB SCH ×4 (02:00→19:22)
[2017-01-28] MEDS: IPRATROPIUM BROMIDE 0.5 MG/2.5 ML NEB SOLUTION NEB SCH ×4 (02:00→19:22)
[2017-01-28 02:17] LABS: GLUCOSE,POINT OF CARE 194 MG/DL (70-110)
[2017-01-28 02:17] LABS: GLUCOSE COMMENT 1 Received Meds; GLUCOSE,POINT OF CARE 226 MG/DL (70-110)
[2017-01-28] MEDS: MORPHINE SULFATE 100 MG/NS/PF 100 ML IV PRN (06:06)
[2017-01-28] MEDS: PIRFENIDONE 267 MG PO SCH ×3 (07:00→18:00)
[2017-01-28] MEDS: PANTOPRAZOLE SODIUM 40 MG/VIAL IVP SCH (08:37)
[2017-01-28] MEDS: BENZONATATE 100 MG CAPSULE PO SCH ×3 (08:38→21:00)
[2017-01-28] MEDS: GuaiFENesin SR 600 MG ER TABLET PO SCH ×2 (08:38→21:00)
[2017-01-28] MEDS: DOCUSATE SODIUM 100 MG CAPSULE PO SCH ×2 (08:38→21:00)
[2017-01-28] MEDS: HEPARIN SODIUM,PORCINE 5,000 UNITS/ML VIAL SQ SCH ×3 (10:33→22:52)
[2017-01-28] MEDS: MethylPREDNISolone SOD SUCC 125 MG/2 ML VIAL IVP SCH ×2 (10:33→22:52)
[2017-01-28] MEDS ORDERED: ACETAMINOPHEN 650 MG RECTAL SUPPOSITORY PR PRN (12:30)
[2017-01-28] MEDS: DEXTROSE 5%-0.45% SODIUM CHL 1,000 ML IV SCH (15:40)
[2017-01-29] VITALS (11 sets, daily range): BP systolic 98–137; BP diastolic 63–79
[2017-01-29] MEDS: MORPHINE SULFATE 100 MG/NS/PF 100 ML IV PRN ×2 (01:39→20:48)
[2017-01-29] MEDS: ALBUTEROL SULFATE 2.5 MG/0.5 ML NEB SOLUTION NEB SCH ×4 (02:00→20:00)
[2017-01-29] MEDS: IPRATROPIUM BROMIDE 0.5 MG/2.5 ML NEB SOLUTION NEB SCH ×4 (02:00→20:00)
[2017-01-29] MEDS: PIRFENIDONE 267 MG PO SCH ×3 (05:29→18:00)
[2017-01-29 06:30] LABS: CREATININE 2.64 mg/dL (0.60-1.30); MAGNESIUM 3.4 mg/dL (1.80-2.40); POTASSIUM 4.8 mmol/L (3.5-5.1)
[2017-01-29] MEDS: MethylPREDNISolone SOD SUCC 125 MG/2 ML VIAL IVP SCH (09:00)
[2017-01-29] MEDS: GuaiFENesin SR 600 MG ER TABLET PO SCH ×2 (09:00→21:00)
[2017-01-29] MEDS: BENZONATATE 100 MG CAPSULE PO SCH ×3 (09:00→21:00)
[2017-01-29] MEDS: DOCUSATE SODIUM 100 MG CAPSULE PO SCH ×2 (09:00→21:00)
[2017-01-29] MEDS: PANTOPRAZOLE SODIUM 40 MG/VIAL IVP SCH (10:12)
[2017-01-29] MEDS: DEXTROSE 5%-0.45% SODIUM CHL 1,000 ML IV SCH (10:13)
[2017-01-29] MEDS: HEPARIN SODIUM,PORCINE 5,000 UNITS/ML VIAL SQ SCH ×2 (15:01→22:34)
[2017-01-29 18:09] LABS: GLUCOSE,POINT OF CARE 135 MG/DL (70-110)
[2017-01-30] MEDS: IPRATROPIUM BROMIDE 0.5 MG/2.5 ML NEB SOLUTION NEB SCH ×4 (02:00→19:47)
[2017-01-30] MEDS: ALBUTEROL SULFATE 2.5 MG/0.5 ML NEB SOLUTION NEB SCH ×4 (02:00→19:47)
[2017-01-30 05:42] VITALS: BP 123/67
[2017-01-30] MEDS: DEXTROSE 5%-0.45% SODIUM CHL 1,000 ML IV SCH (06:17)
[2017-01-30] MEDS: PIRFENIDONE 267 MG PO SCH ×3 (07:00→18:00)
[2017-01-30 07:23] VITALS: BP 132/84
[2017-01-30] MEDS: GuaiFENesin SR 600 MG ER TABLET PO SCH ×2 (09:00→21:00)
[2017-01-30] MEDS: BENZONATATE 100 MG CAPSULE PO SCH ×3 (09:00→21:00)
[2017-01-30] MEDS: DOCUSATE SODIUM 100 MG CAPSULE PO SCH ×2 (09:00→21:00)
[2017-01-30] MEDS: HEPARIN SODIUM,PORCINE 5,000 UNITS/ML VIAL SQ SCH ×2 (09:14→21:56)
[2017-01-30] MEDS: PANTOPRAZOLE SODIUM 40 MG/VIAL IVP SCH (09:14)
[2017-01-30] MEDS: MethylPREDNISolone SOD SUCC 125 MG/2 ML VIAL IVP SCH (09:14)
[2017-01-30 11:09] VITALS: BP 116/80
[2017-01-30 15:18] VITALS: BP 118/84
[2017-01-30] MEDS: MORPHINE SULFATE 100 MG/NS/PF 100 ML IV PRN (16:19)
[2017-01-30 20:55] VITALS: BP 116/84
[2017-01-31] VITALS (8 sets, daily range): BP systolic 57–122; BP diastolic 34–87
[2017-01-31] MEDS: DEXTROSE 5%-0.45% SODIUM CHL 1,000 ML IV SCH (02:13)
[2017-01-31] MEDS: ALBUTEROL SULFATE 2.5 MG/0.5 ML NEB SOLUTION NEB SCH ×4 (02:27→20:00)
[2017-01-31] MEDS: IPRATROPIUM BROMIDE 0.5 MG/2.5 ML NEB SOLUTION NEB SCH ×4 (02:27→20:00)
[2017-01-31] MEDS: PIRFENIDONE 267 MG PO SCH ×3 (07:00→15:55)
[2017-01-31] MEDS: MORPHINE SULFATE 100 MG/NS/PF 100 ML IV PRN ×2 (07:47→18:41)
[2017-01-31] MEDS: BENZONATATE 100 MG CAPSULE PO SCH ×2 (07:48→15:55)
[2017-01-31] MEDS: GuaiFENesin SR 600 MG ER TABLET PO SCH (07:48)
[2017-01-31] MEDS: DOCUSATE SODIUM 100 MG CAPSULE PO SCH (07:48)
[2017-01-31] MEDS: HEPARIN SODIUM,PORCINE 5,000 UNITS/ML VIAL SQ SCH (07:50)
[2017-01-31] MEDS: MethylPREDNISolone SOD SUCC 125 MG/2 ML VIAL IVP SCH (09:27)
[2017-01-31] MEDS: PANTOPRAZOLE SODIUM 40 MG/VIAL IVP SCH (09:28)
== END 2017-01-31 23:48 | disposition expired | DRG 720 ==
LOC: EMS 09:14 → 5N 13:05 → ICU 01-20 11:20 → 5S 01-24 16:50 → 5N 01-28 22:55
PROVIDERS: ADMIT Internal Medicine; ATTEND Internal Medicine
PROC: 5A09557 Assistance with Respiratory Ventilation, Greater than 96 Consecutive Hours, Continuous Positive Airway Pressure (ICD-10-PCS; principal; 2017-01-17)
DX: A41.9 Sepsis, unspecified organism (principal); J96.21 Acute and chronic respiratory failure with hypoxia; G93.41 Metabolic encephalopathy; N17.9 Acute kidney failure, unspecified; J90 Pleural effusion, not elsewhere classified; J81.1 Chronic pulmonary edema; J18.9 Pneumonia, unspecified organism; E84.9 Cystic fibrosis, unspecified; I27.20 Pulmonary hypertension, unspecified; K21.9 Gastro-esophageal reflux disease without esophagitis; J40 Bronchitis, not specified as acute or chronic; J96.22 Acute and chronic respiratory failure with hypercapnia; K44.9 Diaphragmatic hernia without obstruction or gangrene; Z51.5 Encounter for palliative care; Z66 Do not resuscitate; Z99.81 Dependence on supplemental oxygen; J84.10 Pulmonary fibrosis, unspecified; E87.5 Hyperkalemia
CPT/HCPCS: 71250; 82805; 82962; 83605; 83735; 84100; 87040; 87070; 87081; 87205; 87804; 93005; 94640; 94660; 94669; 96365; 96366; 96368; 96375; 99291; C9113; J0131; J0456; J0610; J0696; J1630; J1644; J1885; J2060; J2270; J2543; J2930; J3370; J3475; J3490; J7040; J7050; J7070; J7131